=== PATIENT | male | born 1955 | race Caucasian/White ===

== ENCOUNTER → 2020-10-27 | Outpatient (CLI) | payer OTHER ==
[~2020-10-27] MED LIST: ADVAIR 500-501 EACH INH; IBUPROFEN200 M2; MECLIZINE 25 MG25 M1 PO; ONDANSETRON HCL4 M2 PO; ZPAK PO
== END ==
LOC: ULTRA 16:35
PROVIDERS: ATTEND Orthopaedic Surgery
DX: M79.661 Pain in right lower leg (principal)